=== PATIENT | female | born 1935 | race African-American/Black ===

== ENCOUNTER 2022-03-28 13:51 | Emergency (ER) | payer MEDICARE, OTHER ==
[~2022-03-28] VITALS: Ht 160 cm; Wt 62.0 kg
[2022-03-28] MEDS ORDERED: SODIUM CHLORIDE 0.9% 1,000 ML IV ONE (14:15)
[2022-03-28 14:56] LABS: HEMATOCRIT. 39.8 % (36.0-48.0); HEMOGLOBIN. 12.3 g/dL (12.0-16.0); MEAN CORPUSCULAR HEMOGLOBIN 24.4 pg (28.0-32.0); MEAN CORPUSCULAR VOLUME 79.1 fL (81.0-99.0); MEAN PLATELET VOLUME 8.6 fl (7.4-10.4); PLATELET 345 x1000/uL (130-400); RED BLOOD CELL COUNT 5.03 mill/uL (4.2-5.4); RED CELL DISTRIBUTION WIDTH 19.6 % (11.6-14.6)
[2022-03-28 15:01] LABS: INR 1.2; PROTHROMBIN TIME 12.4 sec (9.6-11.0)
[2022-03-28 15:03] LABS: CHLORIDE 96 mEq/L (98-107)
[2022-03-28] MEDS ORDERED: ASPIRIN 325MG EC TABLET PO ONE (15:15)
[2022-03-28 16:14] LABS: CLARITY URINE CLEAR (CLEAR); COLOR URINE YELLOW (YELLOW); KETONES URINE NEGATIVE (NEGATIVE); LEUKOCYTE ESTERASE URINE 3+ (NEGATIVE); NITRITE URINE NEGATIVE (NEGATIVE); OCCULT BLOOD URINE TRACE (NEGATIVE); PH URINE 6.5 (4.5-8.0); PROTEIN URINE NEGATIVE (NEGATIVE)
[2022-03-28 16:46] LABS: PLATELET ESTIMATE NORMAL
[2022-03-28 22:54] VITALS: BP 90/47
== END 2022-03-29 01:10 | disposition short-term general hospital (02) ==
LOC: ER 13:51 → EDBEDREQ 15:32 → CANBEDREQ 16:31 → ER 03-29 01:10
DX: U07.1 COVID-19 (principal); I95.9 Hypotension, unspecified; I48.91 Unspecified atrial fibrillation; I50.9 Heart failure, unspecified; J44.9 Chronic obstructive pulmonary disease, unspecified
CPT/HCPCS: 36415; 71045; 80053; 81003; 83605; 83880; 84145; 84484; 85025; 85610; 87040; 87426; 87804; 93005; 96360; 99285; C9803; J7030